=== PATIENT | male | born 1995 | race Caucasian/White ===

== ENCOUNTER 2018-06-14 02:02 | Emergency (ER) | payer OTHER ==
[2018-06-14] MEDS ORDERED: KETOROLAC 60 MG/2 ML VIAL IVP STA (02:12)
[2018-06-14] MEDS ORDERED: SODIUM CHLORIDE 0.9% 1,000 ML IV ONE (02:12)
[2018-06-14] MEDS ORDERED: METOCLOPRAMIDE 10 MG/2 ML VIAL IVP STA (02:12)
--- NOTE | 2018-06-14 02:16 | ED Physician Documentation ---
PD HPI HEADACHE - Stated complaint Stated Complaint: HEADACHE - History obtained from History obtained from: Patient - History of Present Illness Timing - onset: Chronic Timing - details: Intermittant Location: Global Associated symptoms: No: Fever, Stiff neck, Nausea, Vomiting Similar symptoms before: No diagnosis Recently seen: Not recently seen - Additional information Additional information: Patient is a 23 year old male with no significant past medical history who is presenting to the emergency department for headaches. patient reports that they have been going on for the last month, but it was even worse today than usual. Patient denies any fevers, chills or trauma. Patient reports a maternal history of a brain mass. Patient states that he was told he needs reading glasses but does not have any. Review of Systems Ten Systems: 10 systems reviewed and negative Constitutional: denies: Fever, Chills Neurologic: reports: Headache PD PAST MEDICAL HISTORY - Present Medications Home Medications: Ambulatory Orders Medication Instructions Recorded Confirmed No Known Home Medications [No 06/14/18 06/14/18 Known Home Medications] - Allergies Allergies/Adverse Reactions: Allergies Allergy/AdvReac Type Severity Reaction Status Date / Time No Known Drug Allergies Allergy Verified 06/14/18 02:13 PD ED PE NORMAL - Vitals Vital signs reviewed: Yes - General General: Alert and oriented X 3, No acute distress, Well developed/nourished - HEENT HEENT: Atraumatic, PERRL, Ears normal - Neck Neck: Supple, no meningeal sign - Cardiac Cardiac: RRR, No murmur - Respiratory Respiratory: No respiratory distress - Abdomen Abdomen: Non distended - Derm Derm: Normal color, Warm and dry, No rash - Extremities Extremities: No deformity - Neuro Neuro: Alert and oriented X 3, shooter's helper 2-12 intact, No motor deficit, Normal speech Eye Opening: Spontaneous Motor: Obeys Commands Verbal: Oriented GCS Score: 15 Results - Vitals Vitals: Vital Signs - 24 hr 06/14/18 06/14/18 02:05 03:27 Temperature 37.3 C Heart Rate 60 63 Respiratory 18 20 Rate Blood Pressure 151/101 H 146/132 H O2 Saturation 100 100 Oxygen O2 Source Room air - Rads (name of study) ct head Radiology: Final report received (no acute findings) PD MEDICAL DECISION MAKING - ED course Complexity details: reviewed old records, reviewed results, re-evaluated patient , considered differential, d/w patient ED course: Patient was seen and examined at bedside. Patient was treated with an ns bolus , toradol, and reglan. Imgaging was ordered. When patient returned from imaging results were reviewed. there were no acute abnormalities. Patient's headache had resolved and patient was discharged. In reviewing the chart patient was found to be quite hypertensive on discharge which wa not related to me. patient's mother was called (no phone number for patient) and she was made aware of the importance for the patient to follow up with his doctor for repeat blood pressure checks. She stated she would tell him when he woke. - Sepsis Event Vital Signs: Vital Signs - 24 hr 06/14/18 06/14/18 02:05 03:27 Temperature 37.3 C Heart Rate 60 63 Respiratory 18 20 Rate Blood Pressure 151/101 H 146/132 H O2 Saturation 100 100 Oxygen O2 Source Room air Departure - Departure Disposition: 01 Home, Self Care Clinical Impression: Headache Condition: Good Instructions: ED Cephalgia Unspecified Follow-Up: primary,care provider [Other] - As Needed Comments: Your diagnostics today were within normal limits. some of the common triggers for headaches is lack of sleep, dehydration and visual strain. Working nights it is often difficult to get adequate sleep but it is important that you get 8 hrs a day. You should also wear reading glasses if needed and make sure you stay well hydrated. You can follow up with your doctor if your headaches persist. You may return to the emergency department at any time for new, worsening or uncontrollable symptoms. Discharge Date/Time: 06/14/18 03:28
--- NOTE | 2018-06-14 02:50 | CT Report ---
Procedure Date: 06/14/2018 Accession Number: [id number] / [id number] Procedure: CT - Head W/O CPT Code: FULL RESULT: EXAM: CT HEAD EXAM DATE: 06/14/2018 02:39 AM. CLINICAL HISTORY: Recurrent headaches, family history of brain mass. COMPARISON: None. TECHNIQUE: Multiaxial CT images were obtained from the foramen magnum to the vertex. Reformats: Coronal. IV contrast: None. In accordance with CT protocol optimization, one or more of the following dose reduction techniques were utilized for this exam: automated exposure control, adjustment of mA and/or KV based on patient size, or use of iterative reconstructive technique. FINDINGS: Parenchyma: No intraparenchymal hemorrhage. No evidence of mass, midline shift, or CT findings of infarction. Mazariegos-white differentiation is distinct. Extraaxial Spaces: Normal for age. No subdural or epidural collections identified. Ventricles: Normal in size and position. Sinuses and Orbits: Imaged paranasal sinuses, orbits, and mastoids show no significant abnormality. Bones: No evidence of fracture or calvarial defect. IMPRESSION: Normal head CT. RADIA
[2018-06-14 03:28] VITALS: BP 146/132
== END 2018-06-14 03:28 | disposition home or self-care (01) ==
LOC: ED 02:02
DX: R51 Headache (principal); R03.0 Elevated blood-pressure reading, without diagnosis of hypertension
CPT/HCPCS: 70450; 96361; 96374; 96375; 99283; J2765

== ENCOUNTER 2019-01-18 09:05 | Emergency (ER) | payer OTHER ==
[2019-01-18] MEDS ORDERED: METOCLOPRAMIDE 10 MG/2 ML VIAL IVP STA (10:05)
[2019-01-18] MEDS ORDERED: SODIUM CHLORIDE 0.9% 1,000 ML IV ONE (10:05)
[2019-01-18] MEDS ORDERED: KETOROLAC 30 MG/ML VIAL IVP STA (10:05)
--- NOTE | 2019-01-18 10:08 | ED Physician Documentation ---
PD HPI HEADACHE - Stated complaint Stated Complaint: MIGRAINE - Chief complaint Chief Complaint: Heent - History obtained from History obtained from: Patient - History of Present Illness Timing - onset: How many days ago (2) Timing - duration: Days (2) Timing - details: Still present Worst headache ever?: Worst headache ever? (No) Location: Global Quality: Aching Associated symptoms: Nausea. No: Vomiting Worsened by: Light, Moving Similar symptoms before: Diagnosis (History of similar headaches in the past. The last time was about 1 week ago.) - Treatment prior to arrival Treatment prior to arrival: 200 mg Motrin, without relief. - Additional information Additional information: The patient is a 23-year-old active [employer] [place] male, who presents with headache of 2 days duration. He describes it as "a migraine." He reports associated photosensitivity and nausea. He denies vomiting, fever, numbness or weakness. He has a history of similar headaches in the past. The last time was about 1 week ago. Review of his medical records reveals that he was seen here in May 2018 with a similar headache. Head CT at that time was normal. He got complete relief after treatment with normal saline, IV Toradol, and IV Reglan. Review of Systems Constitutional: denies: Fever Eyes: reports: Photophobia Ears: denies: Tinnitus/ringing Nose: denies: Congestion Throat: denies: Sore throat Cardiac: denies: Chest pain / pressure Respiratory: denies: Dyspnea, Cough GI: denies: Abdominal Pain, Nausea, Vomiting : denies: Dysuria Skin: denies: Rash Musculoskeletal: denies: Neck pain Neurologic: reports: Headache. denies: Focal weakness, Numbness PD PAST MEDICAL HISTORY - Past Medical History Neuro: Headaches Endocrine/Autoimmune: None - Past Surgical History Past Surgical History: No - Present Medications Home Medications: Ambulatory Orders Medication Instructions Recorded Confirmed Promethazine [Phenergan] 25 mg PO Q6H PRN #10 tab 01/18/19 - Allergies Allergies/Adverse Reactions: Allergies Allergy/AdvReac Type Severity Reaction Status Date / Time No Known Drug Allergies Allergy Verified 01/18/19 09:40 - Social History Does the pt smoke?: No Smoking Status: Never smoker PD ED PE NORMAL - Vitals Vital signs reviewed: Yes (Borderline systolic hypertension initially.) - General General: Alert and oriented X 3, Well developed/nourished - HEENT HEENT: Atraumatic, PERRL, EOMI, Pharynx benign, Other (Fundi without papilledema.) - Neck Neck: Supple, no meningeal sign, No adenopathy, No JVD - Cardiac Cardiac: RRR, No murmur - Respiratory Respiratory: No respiratory distress, Clear bilaterally - Abdomen Abdomen: Soft, Non tender - Back Back: No CVA TTP - Derm Derm: No rash - Extremities Extremities: No edema, No calf tenderness / cord - Neuro Neuro: Alert and oriented X 3, No motor deficit, No sensory deficit, Normal speech Results - Vitals Vitals: Vital Signs - 24 hr 01/18/19 01/18/19 01/18/19 09:37 11:36 12:03 Temperature 36.5 C 36.3 C L Heart Rate 67 60 Respiratory 15 18 Rate Blood Pressure 139/72 H 116/56 L O2 Saturation 100 98 Oxygen O2 Source Room air - Labs Labs: Laboratory Tests 01/18/19 09:31 POC Whole Bld Glucose 92 PD MEDICAL DECISION MAKING - ED course Complexity details: reviewed old records, re-evaluated patient, considered differential, d/w patient ED course: The underlying cause of the patient's headache is not certain, but migraine is most likely. His presentation does not suggest meningitis, subdural hemorrhage, temporal arteritis, or pseudotumor cerebri. Treatment in the emergency department included administration of normal saline 1 L IV, ketorolac 30 mg IV, and metoclopramide 10 mg IV. His headache resolved with the above treatment. He is being discharged with a prescription for Phenergan. I discussed with him symptomatic treatment, outpatient follow-up, as well as potentially worrisome signs or symptoms that should prompt reevaluation in the emergency department. Departure - Departure Disposition: 01 Home, Self Care Clinical Impression: Headache Qualifiers: Headache type: unspecified Headache chronicity pattern: acute headache Intractability: not intractable Qualified Code(s): R51 - Headache Condition: Stable Instructions: ED Cephalgia Unspecified Follow-Up: AMADEO Anderson [Provider Group] Prescriptions: Promethazine [Phenergan] 25 mg PO Q6H PRN #10 tab PRN Reason: Nausea / Vomiting Comments: Drink plenty of fluids. You can use Phenergan as prescribed if needed for nausea. You can use ibuprofen, up to 800 mg 3 times daily if you develop recurrent headache. Follow-up with your primary physician within 2 weeks. Call to schedule an appointment. Return to the emergency department if you develop increasing headache, persistent vomiting, or otherwise worsening symptoms. Discharge Date/Time: 01/18/19 12:06
[2019-01-18 11:36] VITALS: BP 116/56
== END 2019-01-18 12:06 | disposition home or self-care (01) ==
LOC: ED 09:05
DX: R51 Headache (principal); R11.0 Nausea
CPT/HCPCS: 96361; 96374; 99283; J2765